=== PATIENT | male | born 1955 | race Caucasian/White ===

== ENCOUNTER → 2024-09-25 09:29 | Outpatient (BNVA) | payer MEDICARE, SELFPAY | PROVIDERS: Visit Provider Nurse Practitioner Family | DX: C44.519 Basal cell carcinoma of skin of other part of trunk (principal); L57.8 Other skin changes due to chronic exposure to nonionizing radiation; L57.0 Actinic keratosis; D48.5 Neoplasm of uncertain behavior of skin | CPT/HCPCS: 11102; 17004; 99203 ==

== ENCOUNTER → 2024-10-28 08:16 | Outpatient (BNVA) | payer MEDICARE, SELFPAY | PROVIDERS: Visit Provider Dermatology | DX: L30.8 Other specified dermatitis (principal); L85.3 Xerosis cutis; C44.519 Basal cell carcinoma of skin of other part of trunk; C44.629 Squamous cell carcinoma of skin of left upper limb, including shoulder; L57.0 Actinic keratosis | CPT/HCPCS: 11603; 12034; 17000; 17272; 99214 ==

== ENCOUNTER → 2025-02-10 10:26 | Outpatient (BNVA) | payer MEDICARE, SELFPAY | PROVIDERS: Visit Provider Nurse Practitioner Family | DX: L57.8 Other skin changes due to chronic exposure to nonionizing radiation (principal); L81.4 Other melanin hyperpigmentation; D22.5 Melanocytic nevi of trunk; L57.0 Actinic keratosis | CPT/HCPCS: 17004; 99213 ==